=== PATIENT | male | born 1950 | race Hispanic/Latino ===

== ENCOUNTER 2019-10-10 16:32 | Outpatient (CLI) | payer MEDICARE, BC ==
--- NOTE | 2019-10-10 16:50 | RAD ---
RADIOGRAPH CHEST 2 VIEWS: 10/10/19 HISTORY: 68-year-old male with bronchitis, cough, and chills. FINDINGS: There is no air space density, pulmonary edema, pleural effusion, pneumothorax, or cardiomegaly. IMPRESSION: No acute cardiopulmonary findings. jn [] POS: C
== END 2019-10-10 16:33 | disposition home or self-care (01) ==
LOC: SCSRAD 16:32
PROVIDERS: ATTEND Nurse Practitioner Family
DX: J40 Bronchitis, not specified as acute or chronic (principal)
CPT/HCPCS: 71046

== ENCOUNTER 2020-10-26 17:43 | Emergency (ER) | payer MEDICARE, BC ==
[2020-10-26] MEDS ORDERED: Ondansetron PF 4 MG/2 ML Vial ONE (18:28)
--- NOTE | 2020-10-26 18:39 | RAD ---
PORTABLE CHEST: 10/26/20 PROVIDED CLINICAL HISTORY: Cough. FINDINGS: Comparison 10/10/19. Cardiac and mediastinal silhouette is within normal limits. No focal consolidation, pleural fluid or pneumothorax apparent. IMPRESSION: No evidence for an acute cardiopulmonary process. POS: LISA
[2020-10-26 18:42] LABS: #Eosinphils 0.1 thou/uL (0.0-0.7); #Lymphocytes 0.7 thou/uL (1.20-3.40); #Monocytes 0.5 thou/uL (0.11-0.59); #Neutrophils 5.4 thou/uL (1.40-6.50); %Basophils 0.1 % (0.0-1.0); %Eosinophils 1.4 % (0.0-10.0); %Lymphocytes 10.9 % (21.0-51.0); %Monocytes 7.7 % (0.0-10.0); %Neutrophils 79.9 % (42.0-75.0); Mean Corpuscular Volume 96.9 fL (78.0-98.0); Mean Platelet Volume 9.2 fL (7.4-10.4); Platelet Count 161 thou/uL (130-400); RBC Distribution Width 12.6 % (11.5-14.5); Red Blood Cell (RBC) Count 4.68 mill/uL (4.70-6.10); White Blood Cell (WBC) Count 6.8 thou/uL (4.8-10.8)
[2020-10-26 18:49] LABS: PTT 72.5 sec (22.9-36.1); Prothrombin Time 49.4 sec (12.0-14.7)
[2020-10-26 18:51] LABS: INR-International Normal Ratio 5.2
[2020-10-26 18:58] LABS: ALT (SGPT) 66 U/L (8-55); AST (SGOT) 108 U/L (5-34); Albumin 3.8 g/dL (3.4-4.8); Alkaline Phosphatase 151 U/L (40-110); Anion Gap 17 mmol/L (10-20); BUN (Urea Nitrogen) 24 mg/dL (8.4-25.7); Bilirubin, Total 0.4 mg/dL (0.2-1.2); Calc. Creatinine Clearance 0 mL/min (70-130); Calcium 8.8 mg/dL (7.8-10.44); Carbon Dioxide 19 mmol/L (23-31); Chloride 101 mmol/L (98-107); Estimated GFR-MDRD 50; Globulin 3.5 g/dL (2.4-3.5); Glucose 117 mg/dL (80-115); Lipase 23 U/L (8-78); Magnesium 1.9 mg/dL (1.6-2.6); Potassium 3.8 mmol/L (3.5-5.1); Protein, Total 7.3 g/dL (5.8-8.1); Sodium 133 mmol/L (136-145)
[2020-10-26 20:05] LABS: Bacteria/HPF None Seen HPF (None Seen); Bilirubin Negative (Negative); Blood, Urine Negative (Negative); Clarity Clear (Clear); Glucose, Urine (Dipstick) Normal (Negative); Ketone, Urine Negative (Negative); Leukocyte Negative Leu/uL (Negative); Nitrite Negative (Negative); Protein, Urine (Dipstick) 50 mg/dL (Neg-Trace); RBC/HPF 0-3 HPF (0-3); Squamous Epithelial None Seen HPF (0-3); Urobilinogen Normal mg/dL (Less than 2); WBC/HPF 0-3 HPF (0-3); pH, Urine 6.5 (5.0-9.0)
== END 2020-10-26 20:57 | disposition home or self-care (01) ==
LOC: ERS 17:43
DX: U07.1 COVID-19 (principal); R79.1 Abnormal coagulation profile
CPT/HCPCS: 36415; 71045; 80053; 81003; 81015; 83690; 83735; 85025; 85610; 85730; 87040; 87086; 93005; 96374; J2405

== ENCOUNTER 2020-11-03 21:20 | Emergency (ER) | payer MEDICARE, BC | END 2020-11-04 01:05 | disposition home or self-care (01) | LOC: ERS 21:20 | DX: L76.21 Postprocedural hemorrhage of skin and subcutaneous tissue following a dermatologic procedure (principal); I48.91 Unspecified atrial fibrillation; I10 Essential (primary) hypertension; Z79.01 Long term (current) use of anticoagulants; Z79.899 Other long term (current) drug therapy | CPT/HCPCS: 87070; 87205; 99282 ==

== ENCOUNTER 2020-11-04 09:26 | Emergency (ER) | payer MEDICARE, BC | END 2020-11-04 09:57 | disposition home or self-care (01) | LOC: ERS 09:26 | DX: Z48.817 Encounter for surgical aftercare following surgery on the skin and subcutaneous tissue (principal); S41.002A Unspecified open wound of left shoulder, initial encounter; S41.101A Unspecified open wound of right upper arm, initial encounter; I10 Essential (primary) hypertension; I48.91 Unspecified atrial fibrillation; Z79.01 Long term (current) use of anticoagulants; Z79.899 Other long term (current) drug therapy | CPT/HCPCS: 99283 ==

== ENCOUNTER 2020-11-09 08:08 | Emergency (ER) | payer MEDICARE, BC ==
[2020-11-09] MEDS ORDERED: Silver Nitrate Application 1 EACH ONE (08:46)
[2020-11-09 08:54] LABS: #Eosinphils 0.1 thou/uL (0.0-0.7); #Lymphocytes 0.8 thou/uL (1.20-3.40); #Monocytes 0.8 thou/uL (0.11-0.59); #Neutrophils 5.7 thou/uL (1.40-6.50); %Basophils 0.1 % (0.0-1.0); %Lymphocytes 10.2 % (21.0-51.0); %Monocytes 10.7 % (0.0-10.0); %Neutrophils 77.9 % (42.0-75.0); Hemoglobin 11.5 g/dL (14.0-18.0); Mean Corpuscular HGB CONC 33.1 g/dL (32.0-36.0); Mean Corpuscular Hemoglobin 32.4 pg (27.0-31.0); Mean Corpuscular Volume 98.1 fL (78.0-98.0); Mean Platelet Volume 7.4 fL (7.4-10.4); Platelet Count 276 thou/uL (130-400); RBC Distribution Width 13.1 % (11.5-14.5); Red Blood Cell (RBC) Count 3.55 mill/uL (4.70-6.10); White Blood Cell (WBC) Count 7.3 thou/uL (4.8-10.8)
[2020-11-09 09:03] LABS: Prothrombin Time 108.5 sec (12.0-14.7)
[2020-11-09 09:08] LABS: INR-International Normal Ratio 14.2
[2020-11-09 09:09] LABS: PTT 122.2 sec (22.9-36.1)
[2020-11-09] MEDS ORDERED: Lidocaine 1% w/Epinephrine 1:100K 20 ML VIAL ONE (10:08)
== END 2020-11-09 11:20 | disposition home or self-care (01) ==
LOC: ERS 08:08
DX: Z48.817 Encounter for surgical aftercare following surgery on the skin and subcutaneous tissue (principal); R79.1 Abnormal coagulation profile; I10 Essential (primary) hypertension; I48.91 Unspecified atrial fibrillation; Z79.01 Long term (current) use of anticoagulants; Z79.899 Other long term (current) drug therapy
CPT/HCPCS: 36415; 85025; 85610; 85730; 96372; 99283

== ENCOUNTER 2020-11-25 11:39 | Emergency (ER) | payer MEDICARE, BC ==
[2020-11-25 14:02] LABS: #Basophils 0.1 thou/uL (0.0-0.2); #Monocytes 0.6 thou/uL (0.11-0.59); #Neutrophils 6.9 thou/uL (1.40-6.50); %Eosinophils 0.6 % (0.0-10.0); %Lymphocytes 11.1 % (21.0-51.0); %Neutrophils 80.4 % (42.0-75.0); Hemoglobin 11.3 g/dL (14.0-18.0); Mean Corpuscular HGB CONC 33.2 g/dL (32.0-36.0); Mean Corpuscular Hemoglobin 33.1 pg (27.0-31.0); Mean Corpuscular Volume 99.8 fL (78.0-98.0); Platelet Count 245 thou/uL (130-400); RBC Distribution Width 14.3 % (11.5-14.5); Red Blood Cell (RBC) Count 3.41 mill/uL (4.70-6.10); White Blood Cell (WBC) Count 8.6 thou/uL (4.8-10.8)
[2020-11-25 14:08] LABS: INR-International Normal Ratio 2.1; PTT 40.7 sec (22.9-36.1); Prothrombin Time 24.3 sec (12.0-14.7)
[2020-11-25 14:27] LABS: ALT (SGPT) 43 U/L (8-55); AST (SGOT) 76 U/L (5-34); Alkaline Phosphatase 125 U/L (40-110); Anion Gap 14 mmol/L (10-20); BUN (Urea Nitrogen) 25 mg/dL (8.4-25.7); Bilirubin, Total 0.5 mg/dL (0.2-1.2); Calc. Creatinine Clearance 0 mL/min (70-130); Calcium 9.5 mg/dL (7.8-10.44); Carbon Dioxide 23 mmol/L (23-31); Chloride 104 mmol/L (98-107); Globulin 3.1 g/dL (2.4-3.5); Glucose 101 mg/dL (80-115); Potassium 4.2 mmol/L (3.5-5.1); Protein, Total 7.1 g/dL (5.8-8.1); Sodium 137 mmol/L (136-145)
--- NOTE | 2020-11-25 15:49 | RAD ---
Portable frontal chest radiograph: 11/25/2020 COMPARISON: 10/26/2020 HISTORY: Weakness, right ear pain and left eye redness FINDINGS: Lungs are clear. Heart and mediastinal contours appear within normal limits. IMPRESSION: No acute findings.
[2020-11-25] MEDS ORDERED: Meclizine HCl 25 MG TAB ONE (16:17)
== END 2020-11-25 17:08 | disposition home or self-care (01) ==
LOC: ERS 11:39
DX: R42 Dizziness and giddiness (principal); R11.0 Nausea; I48.91 Unspecified atrial fibrillation; Z79.899 Other long term (current) drug therapy
CPT/HCPCS: 36415; 71045; 80053; 85025; 85610; 85730; 93005